=== PATIENT | female | born 1980 | race African-American/Black ===

== ENCOUNTER 2022-03-27 00:38 | Inpatient (IN) ==
[2022-03-27 01:01] LABS: Basophils % 0.2 % (0.0-0.8); Eosinophils # 0.1 10*3/uL (0.0-0.87); Eosinophils % 0.6 % (0.00-10.9); Hematocrit 29.3 VOL% (35.7-47.0); Hemoglobin 8.5 GM/DL (12.0-16.0); Immature Granulocytes % 0.5 %; Immature Granulocytes Absolute 0.07 #; Lymphocytes # 1.7 10*3/uL (1.4-4.0); Lymphocytes % 13.2 % (21.3-54.2); Mean Corpuscular Volume 81.4 FL (87-102); Mean Platelet Volume 10.8 FL (9.6-12.0); Monocytes # 0.7 10*3/uL (0.11-0.8); Monocytes % 5.3 % (1.7-12.7); Neutrophils % 80.2 % (38.7-73.9); Platelet Count 201 T/CUMM (130-400); Red Cell Distribution Width 17.2 % (9.3-17.3); White Blood Count 12.9 T/CUMM (4-12)
[2022-03-27] MEDS ORDERED: SODIUM CHLORIDE 0.9% 1,000 ML IV STA (01:01)
[2022-03-27] MEDS ORDERED: DIPH/TET/ACEL PERT BOOSTER VACCINE 0.5 ML VIAL IM ONE (01:01)
[2022-03-27] MEDS ORDERED: TISSUE ADHESIVE 1 EACH APPLICATOR TOP ONE ×2 (01:14→01:59)
[2022-03-27 01:20] LABS: PT Patient Result 11.4 SECS (10.1-12.1)
[2022-03-27 01:29] LABS: Arterial Base Excess iSTAT -10 MMOL/L (-2.5-2.5); Arterial Bicarbonate iSTAT 14.2 MMOL/L (20-26); Arterial O2 Saturation iSTAT 93 % (95-100); Arterial PCO2 iSTAT 25 MM HG (35-48); Arterial PO2 iSTAT 67 MM HG (80-95); Arterial Total CO2 iSTAT 15 MMO/L (23-27); Arterial pH iSTAT 7.369 (7.35-7.45)
[2022-03-27 01:31] LABS: Alanine Aminotransferase 41 U/L (13-56); Albumin 2.8 G/DL (3.4-5.0); Alkaline Phosphatase 79 U/L (45-117); Aspartate Amino Transferase 27 U/L (0-37); Bilirubin,Total < 0.39 MG/DL (0.20-1.00); Blood Urea Nitrogen 13 MG/DL (7-18); Carbon Dioxide 17 MMOL/L (21-32); Chloride 109 MMOL/L (98-107); Glucose 188 MG/DL (74-106); Osmolality,Calculated 277.8 MOS/KG (273-304); Potassium 3.9 MMOL/L (3.5-5.1); Sodium 137 MMOL/L (136-145); Total Protein 6.9 G/DL (6.4-8.2)
[2022-03-27] MEDS ORDERED: ENOXAPARIN 80 MG/0.8 ML SYRINGE SUBCUT ONE (01:55)
[2022-03-27 02:48] LABS: Bacteria,Urine Occasional /HPF (Few); RBC,Urine <1 /HPF (0-4)
[2022-03-27] MEDS ORDERED: ENOXAPARIN 100 MG/ML SYRINGE SUBCUT STA (02:48)
[2022-03-27 02:49] LABS: Bilirubin,Urine Negative (Negative); Blood, Urine Negative (Negative); Glucose,Urine (UA) Negative (Negative); Ketones,Urine Negative (Negative); Nitrite,Urine Negative (Negative); Protein,Urine Negative (Negative); Urine Appearance Clear (Clear); Urine Color Colorless (Yellow); Urine Specific Gravity 1.005 (1.001-1.035); Urine Urobilinogen 0.2 eU/dL (<2.0); Urine pH 5.5 (4.5-8.0)
[2022-03-27 02:59] LABS: Barbiturates Screen,Urine Negative (Negative); Benzodiazepines Screen,Urine Negative (Negative); Cannabinoid Screen,Urine Negative (Negative); Opiate Screen,Urine Negative (Negative); Phencyclidine Screen,Urine Negative (Negative)
[2022-03-27] MEDS ORDERED: ALBUTEROL 2.5 MG/3 ML NEB RESP TX PRN (03:29)
[2022-03-27] MEDS ORDERED: ONDANSETRON 4 MG/2 ML VIAL IV PRN (03:30)
[2022-03-27] MEDS ORDERED: DOCUSATE SODIUM 100 MG CAPSULE PO PRN (03:30)
[2022-03-27] MEDS ORDERED: fentaNYL 100 MCG/2 ML VIAL ONE (03:42)
[2022-03-27] MEDS ORDERED: HEPARIN/NACL 0.9% 2 UNITS/ML 3,000 UNIT/1,500 ML BAG IV ONE (03:42)
[2022-03-27] MEDS ORDERED: MIDAZOLAM 2 MG/2 ML VIAL ONE (03:42)
[2022-03-27] MEDS ORDERED: ALTEPLASE 12 MG in SODIUM CHLORIDE 0.9% 240 ML IV SCH (04:00)
[2022-03-27] MEDS: SODIUM CHLORIDE 0.9% 1,000 ML IV SCH ×3 (05:15→17:30)
[2022-03-27] MEDS ORDERED: SODIUM CHLORIDE 0.9% 1,000 ML IV SCH ×2 (05:30)
[2022-03-27] MEDS ORDERED: INFLUENZA VIRUS VACCINE 0.5 ML SYRINGE IM ONE (06:28)
[2022-03-27 06:55] LABS: % Iron Saturation 3.6 % (18-50); Ferritin 9.8 ng/mL (8-252)
[2022-03-27 06:59] LABS: PT Patient Result 11.1 SECS (10.1-12.1); Partial Thromboplastin Time 25.8 SECS (23.7-32.9)
[2022-03-27] MEDS: ACETAMINOPHEN 325 MG TABLET PO PRN (08:36)
[2022-03-27] MEDS ORDERED: MORPHINE 2 MG/1 ML SYRINGE IV PRN (13:18)
[2022-03-27] MEDS: METOPROLOL TARTRATE 25 MG TABLET PO SCH (14:09)
[2022-03-27] MEDS: APIXABAN 5 MG TABLET PO SCH (20:39)
[2022-03-28] MEDS: SODIUM CHLORIDE 0.9% 1,000 ML IV SCH ×2 (01:15→06:00)
[2022-03-28 05:14] LABS: INR 1.1; PT Patient Result 11.9 SECS (10.1-12.1)
[2022-03-28 05:16] LABS: Alanine Aminotransferase 35 U/L (13-56); Albumin 2.4 G/DL (3.4-5.0); Alkaline Phosphatase 68 U/L (45-117); Aspartate Amino Transferase 28 U/L (0-37); Bilirubin,Total < 0.39 MG/DL (0.20-1.00); Blood Urea Nitrogen 6 MG/DL (7-18); Calcium 7.5 MG/DL (8.5-10.1); Carbon Dioxide 20 MMOL/L (21-32); Chloride 116 MMOL/L (98-107); Glucose 76 MG/DL (74-106); Osmolality,Calculated 277.3 MOS/KG (273-304); Potassium 3.7 MMOL/L (3.5-5.1); Sodium 141 MMOL/L (136-145); Total Protein 6.1 G/DL (6.4-8.2)
[2022-03-28 05:33] LABS: Partial Thromboplastin Time 31.3 SECS (23.7-32.9)
[2022-03-28 05:39] LABS: Basophils % 0.3 % (0.0-0.8); Eosinophils # 0.1 10*3/uL (0.0-0.87); Eosinophils % 1.2 % (0.00-10.9); Hematocrit 21.6 VOL% (35.7-47.0); Immature Granulocytes % 0.3 %; Immature Granulocytes Absolute 0.02 #; Lymphocytes # 1.3 10*3/uL (1.4-4.0); Lymphocytes % 18.8 % (21.3-54.2); Mean Corpuscular HGB Conc 29.6 GM/DL (32-36); Mean Corpuscular Volume 82.4 FL (87-102); Mean Platelet Volume 11.4 FL (9.6-12.0); Monocytes # 0.6 10*3/uL (0.11-0.8); Monocytes % 9.2 % (1.7-12.7); Neutrophils % 70.2 % (38.7-73.9); Platelet Count 149 T/CUMM (130-400); Red Blood Count 2.62 MC/CUMM (3.8-5.5); Red Cell Distribution Width 17.5 % (9.3-17.3); White Blood Count 6.7 T/CUMM (4-12)
[2022-03-28 05:41] LABS: Hemoglobin 6.4 GM/DL (12.0-16.0)
[2022-03-28] MEDS ORDERED: SODIUM CHLORIDE 0.9% 1,000 ML IV PRN (05:54)
[2022-03-28 07:11] LABS: Platelet Estimate Adequate
[2022-03-28 08:08] LABS: Hematocrit 21.4 VOL% (35.7-47.0)
[2022-03-28 08:11] LABS: Hemoglobin 6.3 GM/DL (12.0-16.0)
[2022-03-28] MEDS: APIXABAN 5 MG TABLET PO SCH (09:59)
[2022-03-28] MEDS: METOPROLOL TARTRATE 25 MG TABLET PO SCH (09:59)
[2022-03-28] MEDS: PANTOPRAZOLE 40 MG TABLET PO SCH (11:39)
[2022-03-28 12:32] LABS: Protein S Ag (Free) 85 % (50 - 160)
[2022-03-28 12:59] VITALS: BP 127/88
[2022-03-28 15:42] LABS: Hematocrit 29.4 VOL% (35.7-47.0)
[2022-03-28 15:45] LABS: Hemoglobin 9.1 GM/DL (12.0-16.0)
[2022-03-28] MEDS: ACETAMINOPHEN 325 MG TABLET PO PRN (18:30)
[2022-03-29 05:38] LABS: Basophils % 0.3 % (0.0-0.8); Eosinophils # 0.1 10*3/uL (0.0-0.87); Eosinophils % 0.8 % (0.00-10.9); Hemoglobin 8.7 GM/DL (12.0-16.0); Immature Granulocytes % 0.5 %; Immature Granulocytes Absolute 0.05 #; Lymphocytes # 1.2 10*3/uL (1.4-4.0); Mean Corpuscular HGB Conc 31.1 GM/DL (32-36); Mean Corpuscular Volume 79.8 FL (87-102); Mean Platelet Volume 11.8 FL (9.6-12.0); Monocytes # 0.9 10*3/uL (0.11-0.8); Monocytes % 8.9 % (1.7-12.7); Neutrophils % 77.5 % (38.7-73.9); Platelet Count 182 T/CUMM (130-400); Red Blood Count 3.51 MC/CUMM (3.8-5.5); Red Cell Distribution Width 17.4 % (9.3-17.3); White Blood Count 9.7 T/CUMM (4-12)
[2022-03-29 05:55] LABS: Albumin 2.4 G/DL (3.4-5.0); Bilirubin,Total 0.4 MG/DL (0.20-1.00); Calcium 8.2 MG/DL (8.5-10.1); Potassium 3.3 MMOL/L (3.5-5.1); Total Protein 6.3 G/DL (6.4-8.2)
[2022-03-29] MEDS: POTASSIUM CHLORIDE 20 MEQ TABLET PO PRN ×2 (09:12→11:18)
[2022-03-29] MEDS: PANTOPRAZOLE 40 MG TABLET PO SCH (09:12)
[2022-03-29] MEDS: METOPROLOL TARTRATE 25 MG TABLET PO SCH (09:12)
[2022-03-29] MEDS: APIXABAN 5 MG TABLET PO SCH ×2 (09:12→20:30)
[2022-03-30 05:55] LABS: Basophils % 0.2 % (0.0-0.8); Eosinophils # 0.1 10*3/uL (0.0-0.87); Eosinophils % 1.1 % (0.00-10.9); Hematocrit 27.7 VOL% (35.7-47.0); Hemoglobin 8.5 GM/DL (12.0-16.0); Immature Granulocytes % 0.5 %; Immature Granulocytes Absolute 0.04 #; Lymphocytes # 1.3 10*3/uL (1.4-4.0); Lymphocytes % 14.5 % (21.3-54.2); Mean Corpuscular HGB Conc 30.7 GM/DL (32-36); Mean Corpuscular Volume 79.8 FL (87-102); Mean Platelet Volume 10.8 FL (9.6-12.0); Monocytes # 0.8 10*3/uL (0.11-0.8); Monocytes % 9.4 % (1.7-12.7); Neutrophils % 74.3 % (38.7-73.9); Platelet Count 208 T/CUMM (130-400); Red Blood Count 3.47 MC/CUMM (3.8-5.5); Red Cell Distribution Width 17.6 % (9.3-17.3); White Blood Count 8.8 T/CUMM (4-12)
[2022-03-30 06:14] LABS: Calcium 8.1 MG/DL (8.5-10.1); Osmolality,Calculated 278.1 MOS/KG (273-304); Potassium 3.6 MMOL/L (3.5-5.1)
[2022-03-30] MEDS: APIXABAN 5 MG TABLET PO SCH (09:15)
[2022-03-30] MEDS: PANTOPRAZOLE 40 MG TABLET PO SCH (09:15)
[2022-03-30] MEDS: METOPROLOL TARTRATE 25 MG TABLET PO SCH (09:16)
[2022-03-30 12:41] LABS: Protein S Activity Plasma 92 % (50 - 160)
[2022-03-30 16:11] LABS: Protein C Activity Plasma 84 % (70 - 150)
[2022-03-31 08:56] LABS: Activated Partial Thromb Time 21 sec (25 - 37); Fibrinogen, Clauss, P 250 mg/dL (200 - 500); INR 1.1 (0.9-1.1); Thrombin Time (Bovine), P 34.5 sec; von Willebrand Factor Activity 203 % (55 - 200)
[2022-03-31] MEDS ORDERED: METOPROLOL SUCCINATE XL 25 MG TABLET PO SCH (09:00)
[2022-03-31 09:41] LABS: Factor V Leiden (R506Q) Mutati Negative (Negative)
[2022-04-01 10:09] LABS: Reptilase Time, P 34.5 sec
== END 2022-03-30 12:00 | disposition home or self-care (01) | DRG 167 ==
LOC: EDBD → EDUNIT# → N.ED 00:38 → N.EDINP 03:25 → SUATTDRO 03:25 → N.EDINP 03:35 → N.ICU 05:30
PROVIDERS: ADMIT Family Medicine; ATTEND Internal Medicine